=== PATIENT | female | born 1995 | race Caucasian/White ===

== ENCOUNTER 2017-03-31 11:08 | Emergency (ER) | payer BC ==
[~2017-03-31] VITALS: Ht 170.2 cm; Wt 88.0 kg
[~2017-03-31 11:08] MED LIST: ADDE20TA PO; ZOFR4TAB3 SL
[2017-03-31 11:22] VITALS: BP 124/60; PULSE 78; RESP 18; TEMP 97.8; O2SAT 99
[2017-03-31] MEDS ORDERED: ADDE20 PO (11:32)
[2017-03-31] MEDS ORDERED: AUGM875T3 PO (12:12)
[2017-03-31] MEDS ORDERED: FLUT1SPR5 EACH NARE (12:12)
[2017-03-31] MEDS ORDERED: KETOROLAC TROMETHAMINE 60 MG/2 ML (IM) VIAL IM ONE (12:15)
--- NOTE | 2017-03-31 12:16 | PD ---
HPI Chief Complaint: Facial Pain or Swelling Time Seen by Provider: 11:39 Travel History International Travel<30 days: No Contact w/Intl Traveler<30days: No Traveled to known affect area: No History of Present Illness HPI 21-year-old female here with nasal congestion, sinus pain, headache 4 days. She reports history of sinusitis with similar symptoms. She denies nausea or vomiting, visual changes. Symptom severity is moderate. No aggravating or alleviating factors. PFSH Past Medical History ADHD: Yes Asthma: Yes Blood Disorders: No Diminished Hearing: No Immunizations Current: Yes Migraines: Yes Influenza Vaccination: No ?: Not LMP: 3.5 WEEK AGO Past Surgical History Tonsillectomy: Yes Social History Alcohol Use: No Tobacco Use: No Substance Use: No Allergies-Medications (Allergen,Severity, Reaction): Coded Allergies: No Known Allergies (Verified Adverse Reaction, Unknown, 03/31/17) Reported Meds & Prescriptions Reported Meds & Active Scripts Active Reported Adderall (Amphetamine-Dextroamphetamine) 20 Mg Tab 20 Mg PO BID Avoid late evening doses. Space doses at least 4 to 6 hours if more than once/day dosing. Review of Systems Except as stated in HPI: all other systems reviewed are Neg General / Constitutional: No: Fever Eyes: No: Visual changes HENT: Positive: Headaches, Congestion Cardiovascular: No: Chest Pain or Discomfort Physical Exam Narrative GENERAL: Alert, well-appearing female. Nontoxic appearing. SKIN: Warm and dry. HEAD: Normocephalic. EYES: PERRL, EOMI, no discharge or injection. No scleral icterus. NOSE: Left maxillary and frontal sinus tenderness. Nasal turbinates appear normal without nasal blood, purulent drainage or septal hematoma. THROAT: Mucosa pink and moist. No erythema or exudates. No uvular edema. No uvular, palatal, or tonsillar deviation. Airway patent. NECK: Supple, trachea midline. No JVD or lymphadenopathy. CARDIOVASCULAR: Regular rate and rhythm without murmurs, gallops, or rubs. RESPIRATORY: Breath sounds equal bilaterally. No accessory muscle use. NEUROLOGICAL: Awake and alert. Cranial nerves II through XII intact. Motor and sensory grossly within normal limits. Five out of 5 muscle strength in all muscle groups. Normal speech. Data Data Last Documented VS Vital Signs Date Time Temp Pulse Resp B/P (MAP) Pulse Ox O2 Delivery O2 Flow Rate FiO2 03/31/17 11:22 97.8 78 18 124/60 (81) 99 Orders Orders Ketorolac Inj (Toradol Inj) (03/31/17 12:15) [facility] Medical Decision Making Medical Screen Exam Complete: Yes Emergency Medical Condition: Yes Differential Diagnosis Sinusitis, sinus headache, URI Narrative Course 21-year-old female here with sinus pain and pressure and nasal congestion. Her vital signs are stable. She is nontoxic appearing. She'll be treated for sinusitis Diagnosis Primary Impression: Sinusitis Qualified Codes: J32.0 - Chronic maxillary sinusitis Referrals: [facility] Additional Instructions: Antibiotics as prescribed. Nasal steroid as prescribed. [id number] ibuprofen 800 mg every 6-8 hours as needed for pain. Scripts Fluticasone Nasal [place] (Flonase Nasal [place]) 50 Mcg/Act [place] 50 MCG EACH NARE BID for Allergies, #1 BOTTLE 0 Refills Prov: Soha Moon 03/31/17 Amoxicillin-Clavulanate (Augmentin) 875-125 Mg Tab 1 TAB PO BID for Infection for 10 Days, #20 TAB 0 Refills Prov: Soha Moon 03/31/17 Disposition: 01 DISCHARGE HOME Condition: Stable Soha Moon Mar 31, 2017 12:16
== END 2017-03-31 12:32 | disposition home or self-care (01) ==
LOC: PHEFT 11:08
DX: J32.0 Chronic maxillary sinusitis (principal); J45.909 Unspecified asthma, uncomplicated
CPT/HCPCS: 96372; 99284; J1885